=== PATIENT | female | born 1990 | race Caucasian/White ===

== ENCOUNTER 2022-04-13 16:56 | Emergency (ER) | payer BC ==
[~2022-04-13] VITALS: Ht 160 cm; Wt 65.8 kg
[2022-04-13 17:17] VITALS: BP 120/75
--- NOTE | 2022-04-13 18:07 | NUR ---
PT AMBULATED TO ER BED 7
[2022-04-13 18:12] LABS: BASOPHILS # (AUTO) 0.1 K/uL (0.00-0.22); BASOPHILS % (AUTO) 1.2 % (0.0-2.0); EOSINOPHILS # (AUTO) 0.1 K/uL (0-0.4); EOSINOPHILS % (AUTO) 1.8 % (0.0-4.0); HEMATOCRIT 39.4 % (36-48); HEMOGLOBIN 13.1 g/dL (12.0-16.0); LYMPHOCYTES # (AUTO) 1.6 K/uL (2.5-16.5); LYMPHOCYTES % (AUTO) 24.7 % (20.5-51.1); MEAN CORPUSCULAR HEMOGLOBIN 29 pg (27-31); MEAN CORPUSCULAR HGB CONC 33 g/dL (33-37); MEAN CORPUSCULAR VOLUME 88.5 fL (80-94); MONOCYTES # (AUTO) 0.4 K/uL (0.8-1.0); MONOCYTES % (AUTO) 6.4 % (1.7-9.3); NEUTROPHILS # (AUTO) 4.2 K/uL (1.8-7.7); NEUTROPHILS % (AUTO) 65.9 % (42.2-75.2); PLATELET COUNT (AUTO) 394 K/uL (140-450); RED BLOOD CELL COUNT(AUTO) 4.45 MIL/uL (4.20-5.40); RED CELL DISTRIBUTION WIDTH 13.9 % (11.6-13.7); WHITE BLOOD COUNT (AUTO) 6.3 K/uL (4.8-10.8)
--- NOTE | 2022-04-13 18:30 | NUR ---
31F presents to ED with c/o bloody stool, epigastric and ABD pain x1 week. Pt reports worsening bloody stools today, bright red in color, nausea for last 2 days; epigastric and ABD pain only after eating. Pt reports taking tylenol with mild relief, denies taking today. Pt denies dizziness, fevers, chills or diarrhea. Pt changed into gown, side rails up x1.
[2022-04-13 18:36] LABS: ANION GAP 10.6 (8-16); CARBON DIOXIDE 32.8 mmol/L (21-32); CREATININE 0.7 mg/dL (0.6-1.3); POTASSIUM 4.4 mmol/L (3.5-5.1); TOTAL BILIRUBIN 0.2 mg/dL (0.0-1.0)
[2022-04-13] MEDS ORDERED: ONDANSETRON 4 MG/2 ML VIAL IVP ONE (18:40)
[2022-04-13] MEDS ORDERED: NACL 0.9% 1,000 ML IV ONE (18:40)
--- NOTE | 2022-04-13 19:15 | NUR ---
Pt report given to SHAZIA Galarza. Transfer of care at this time.
--- NOTE | 2022-04-13 20:00 | NUR ---
RESTING COMFORTABLY AWAITING EXAM RESULTS
[2022-04-13] MEDS ORDERED: ONDA-188 PO (21:53)
[2022-04-13] MEDS ORDERED: SIME125T38 PO (21:53)
[2022-04-13] MEDS ORDERED: IBUP-2213 PO (21:54)
--- NOTE | 2022-04-13 23:07 | NUR ---
DR LYNN AT BEDSIDE FOR REEXAM AND DISPOSITION
[2022-04-13] MEDS ORDERED: HYDR25SU91 RC (23:10)
[2022-04-13 23:20] VITALS: BP 120/75
--- NOTE | 2022-04-13 23:20 | NUR ---
Patient discharged with v/s stable. Written and verbal after care instructions given and explained. Patient alert, oriented and verbalized understanding of instructions. Ambulatory with steady gait. All questions addressed prior to discharge. ID band removed. Patient advised to follow up with PMD. Rx of ANUSOL, ZOFRAN, MYLANTA given. Patient educated on indication of medication including possible reaction and side effects. Opportunity to ask questions provided and answered.
== END 2022-04-13 23:20 | disposition home or self-care (01) ==
LOC: MED 16:56
DX: K92.2 Gastrointestinal hemorrhage, unspecified (principal); Z88.2 Allergy status to sulfonamides; Z79.899 Other long term (current) drug therapy
CPT/HCPCS: 36415; 74177; 80053; 81025; 85025; 86886; 86900; 86901; 96361; 96374; 99285; J2405; Q9967